=== PATIENT | female | born 1955 | race Caucasian/White ===

== ENCOUNTER 2016-08-25 12:41 | Emergency (ER) | payer OTHER ==
[~2016-08-25] VITALS: Ht 165.1 cm; Wt 83.9 kg
--- NOTE | 2016-08-25 13:00 | NUR ---
Pt states she is w/d from alcohol. C/O racing heart and palpitations w/ some "tightness" in the chest, feels SOB but is tachypnic, right arm numbness, and nausea -- unable to eat for 2 days, and dizziness. PERRLA. [id number]. LS = and clear. No distress noted, but pt shows signs of extreme anxiety.
[2016-08-25] MEDS ORDERED: LORAZEPAM 2 MG/1 ML VIAL IV ONE (13:15)
[2016-08-25] MEDS ORDERED: ONDANSETRON 4 MG/2 ML VIAL IV ONE (13:15)
[2016-08-25] MEDS ORDERED: PANTOPRAZOLE SODIUM 40 MG VIAL IV ONE (13:15)
[2016-08-25] MEDS ORDERED: IV NORMAL SALINE 1000 ML BAG IV ONE (13:15)
[2016-08-25] MEDS ORDERED: PROMETHAZINE HCL 25 MG/1 ML VIAL ONE (13:20)
[2016-08-25 13:27] LABS: BASOPHILS # (AUTO) 0.1 K/uL (0.0-8.0); BASOPHILS % (AUTO) 0.7 % (0.0-2.0); EOSINOPHILS % (AUTO) 0.1 % (0.0-7.0); HEMATOCRIT 46.7 % (37-47); HEMOGLOBIN 15.5 G/DL (12.0-16.0); LYMPHOCYTES # (AUTO) 1.4 K/UL (0.8-4.8); LYMPHOCYTES % (AUTO) 16.3 % (20.5-51.5); MEAN CORPUSCULAR HEMOGLOBIN 30.4 UUG (27.0-31.0); MEAN CORPUSCULAR HGB CONC 33 g/dL (32.0-37.0); MEAN CORPUSCULAR VOLUME 91.6 FL (81.0-99.0); MONOCYTES # (AUTO) 0.5 K/UL (0.1-1.30); NEUTROPHILS # (AUTO) 6.9 K/UL (1.8-8.9); NEUTROPHILS % (AUTO) 76.9 % (38.5-71.5); PLATELET COUNT (AUTO) 170 K/UL (150-450); WHITE BLOOD COUNT (AUTO) 8.9 K/UL (4.0-11.2)
[2016-08-25] MEDS ORDERED: ONDANSETRON 4 MG/2 ML VIAL ONE (13:30)
[2016-08-25] MEDS ORDERED: PANTOPRAZOLE SODIUM 40 MG VIAL ONE (13:30)
[2016-08-25] MEDS ORDERED: LORAZEPAM 2 MG/1 ML VIAL ONE (13:31)
[2016-08-25 13:40] LABS: POTASSIUM 4.3 mmol/L (3.5-5.1)
[2016-08-25 13:45] LABS: BILIRUBIN,DIRECT 0.3 mg/dL (0.0-0.2); BILIRUBIN,TOTAL 1.2 mg/dL (0.2-1.0); TOTAL PROTEIN, SERUM 8.2 g/dL (6.4-8.2)
--- NOTE | 2016-08-25 14:28 | NUR ---
Aris alexander in ED - 08/25/16 at 1442 by CECY Removed IV intact, site okeduar, bandaged.
--- NOTE | 2016-08-25 14:31 | NUR ---
Aris alexander in REG - 08/25/16 at 1441 by CECY Pt given RX and d/c instructions, verbalized understanding, translated by len.
[2016-08-25] MEDS ORDERED: ASPIRIN EC 325 MG TABLET.DR PO SCH (15:15)
--- NOTE | 2016-08-25 15:17 | NUR ---
Pt reports that shaking and nausea are somewhat better. Also c/o MD JOSE L aware.
[2016-08-25] MEDS ORDERED: ASPIRIN 325 MG TABLET ONE (15:19)
--- NOTE | 2016-08-25 17:41 | NUR ---
IV was removed intact, site okay, bandaged. Gave pt RX and d/c instructions, verbalized understanding.
== END 2016-08-25 17:46 | disposition home or self-care (01) ==
LOC: ER 12:43
DX: F10.239 Alcohol dependence with withdrawal, unspecified (principal); I10 Essential (primary) hypertension
CPT/HCPCS: 36415; 83690; 85025; 93005; A4663; C9113; J2060; J2405; J2550

== ENCOUNTER 2016-12-16 13:44 | Emergency (ER) | payer OTHER ==
[~2016-12-16] VITALS: Ht 165.1 cm; Wt 72.6 kg
[2016-12-16] MEDS ORDERED: ASPI-612 PO (13:59)
[2016-12-16] MEDS ORDERED: AMLO5TAB2 PO (13:59)
[2016-12-16 15:23] LABS: BASOPHILS % (AUTO) 0.7 % (0.0-2.0); EOSINOPHILS # (AUTO) 0.1 K/uL (0.0-0.7); EOSINOPHILS % (AUTO) 0.9 % (0.0-7.0); HEMATOCRIT 42.5 % (37-47); HEMOGLOBIN 13.8 G/DL (12.0-16.0); LYMPHOCYTES # (AUTO) 1.7 K/UL (0.8-4.8); LYMPHOCYTES % (AUTO) 25.5 % (20.5-51.5); MEAN CORPUSCULAR HEMOGLOBIN 30.7 UUG (27.0-31.0); MEAN CORPUSCULAR HGB CONC 33 g/dL (32.0-37.0); MEAN CORPUSCULAR VOLUME 94.3 FL (81.0-99.0); MONOCYTES # (AUTO) 0.9 K/UL (0.1-1.30); MONOCYTES % (AUTO) 13.3 % (0.0-11.0); NEUTROPHILS # (AUTO) 3.9 K/UL (1.8-8.9); NEUTROPHILS % (AUTO) 59.6 % (38.5-71.5); PLATELET COUNT (AUTO) 244 K/UL (150-450); RED BLOOD CELL COUNT(AUTO) 4.51 MIL/UL (4.2-5.4); WHITE BLOOD COUNT (AUTO) 6.6 K/UL (4.0-11.2)
[2016-12-16 15:35] LABS: CREATININE 0.7 mg/dL (0.6-1.3); POTASSIUM 3.8 mmol/L (3.5-5.1)
[2016-12-16 15:40] LABS: BILIRUBIN,DIRECT 0.2 mg/dL (0.0-0.2); BILIRUBIN,TOTAL 0.7 mg/dL (0.2-1.0); TOTAL PROTEIN, SERUM 7.3 g/dL (6.4-8.2)
--- NOTE | 2016-12-16 15:47 | NUR ---
Patient discharged to home in stable conditon. Written and verbal after care instructions given. Patient verbalizes understanding of instructions.
== END 2016-12-16 16:00 | disposition home or self-care (01) ==
LOC: ER 13:47
DX: K57.30 Diverticulosis of large intestine without perforation or abscess without bleeding (principal); K59.00 Constipation, unspecified; I10 Essential (primary) hypertension; Z79.82 Long term (current) use of aspirin
CPT/HCPCS: 83690; 85025; A4663

== ENCOUNTER 2017-12-02 00:13 | Emergency (ER) | payer OTHER ==
[~2017-12-02] VITALS: Ht 165.1 cm; Wt 72.6 kg
[~2017-12-02 00:13] MED LIST: AMLO5TAB7 PO; ASPI-612 PO
--- NOTE | 2017-12-02 00:35 | NUR ---
Dr. Mckeon at bedside for MSE.
[2017-12-02] MEDS ORDERED: HYDROMORPHONE 1 MG/1 ML DISP.SYRIN IV ONE ×2 (00:45→01:30)
[2017-12-02] MEDS ORDERED: ONDANSETRON IV *ER 4 MG/2 ML VIAL IV ONE (00:45)
[2017-12-02] MEDS ORDERED: HYDROMORPHONE 1 MG/1 ML DISP.SYRIN ONE ×2 (00:50→01:35)
[2017-12-02] MEDS ORDERED: ONDANSETRON 4 MG/2 ML VIAL ONE (00:50)
--- NOTE | 2017-12-02 00:57 | NUR ---
Xray at bedside.
[2017-12-02] MEDS ORDERED: LORAZEPAM 2 MG/1 ML VIAL ONE (01:08)
[2017-12-02] MEDS ORDERED: LORAZEPAM 2 MG/1 ML VIAL IV ONE (01:15)
[2017-12-02] MEDS ORDERED: ALPR0.5T8 PO (01:42)
--- NOTE | 2017-12-02 02:47 | NUR ---
Patient discharged to home in stable conditon. Written and verbal after care instructions given. Patient verbalizes understanding of instructions. Pt ambulated out of ER with steady gait, no acute signs of distress, VSS, all belongings taken, IV site discontinued, provided with xray results and CD.
[2017-12-02 02:49] VITALS: BP 119/37
== END 2017-12-02 02:49 | disposition home or self-care (01) ==
LOC: ER 00:16
DX: S52.532A Colles' fracture of left radius, initial encounter for closed fracture (principal); I10 Essential (primary) hypertension; Z88.8 Allergy status to other drugs, medicaments and biological substances; W10.8XXA Fall (on) (from) other stairs and steps, initial encounter; Y93.89 Activity, other specified; Y92.89 Other specified places as the place of occurrence of the external cause; Y99.8 Other external cause status
CPT/HCPCS: 73090; A4663; J1170; J2060; J2405